=== PATIENT | male | born 2000 | race Two or more races ===

== ENCOUNTER 2023-03-12 10:39 | Emergency (ER) | payer MEDICAID ==
[~2023-03-12] VITALS: Ht 167.6 cm; Wt 68.0 kg
[2023-03-12 10:49] VITALS: BP 141/97
[2023-03-13 10:14] LABS: HIV AB/P24 AG SCREEN Non Reactive (Non Reactive)
[2023-03-13 20:14] LABS: HBSAG SCREEN Negative (Negative); HCV ANTIBODY Non Reactive (Non Reactive); HEP B CORE AB, TOT Negative (Negative)
[2023-03-13 23:07] LABS: CHLAMYDIA TRACHOMATIS, NAA Negative (Negative); NEISSERIA GONORRHOEAE, NAA Negative (Negative)
== END 2023-03-12 11:45 | disposition home or self-care (01) ==
LOC: ER 10:39
PROVIDERS: Emergency Medicine
DX: Z11.3 Encounter for screening for infections with a predominantly sexual mode of transmission (principal); Z88.0 Allergy status to penicillin
CPT/HCPCS: 86592; 86704; 86803; 87340; 87389; 87491; 87591; 99283